=== PATIENT | female | born 1945 | race Caucasian/White ===

== ENCOUNTER 2018-02-27 10:16 | Outpatient (CLI) | payer MEDICARE ==
--- NOTE | 2018-02-27 11:08 | RAD ---
CERVICAL SPINE 3 VIEWS: Date: 02/27/18 HISTORY: 72-year-old female with history of cervical radiculopathy, with pain from base of skull into lower ba ck. Exam includes standing neutral, flexion, and extension lateral views. FINDINGS: Extensive disc osteophytosis changes are noted, particularly at C4-C5, C5-C6, and C6-C7. There is sta ble retrolisthesis of C5 on C6. There is mild anterolisthesis of C4 on C5 with approximately 0.2 cm o f anterolisthesis noted on flexion, with no significant anterolisthesis seen on extension, consistent with some mild or borderline abnormal translation. No prevertebral soft tissue swelling. IMPRESSION: Multilevel cervical spondylosis with approximately 0.2 cm anterolisthesis of C4 on C5 in flexion and no anterolisthesis demonstrated on extension. Evidence for very mild or borderline abnormal translati on. POS: [facility]
--- NOTE | 2018-02-27 11:46 | MRI ---
MRI CERVICAL SPINE PERFORMED WITHOUT CONTRAST ENHANCEMENT: Date: 02/27/18 HISTORY: Neck pain, cervical radiculopathy. FINDINGS: Vertebral bodies maintain normal height. There is disc narrowing at C4-5, C5-6, and C6-7. Cord signal change is unremarkable. C2-3: Degenerative facet changes at this level with some borderline left-sided foraminal narrowing. C3-4: Degenerative facet changes are also present at this level. There is some mild left-sided foraminal na rrowing. C4-5: Minimal anterolisthesis is present. There is posterior osteophytic bar present. There is some mild ri ght and more pronounced left-sided foraminal narrowing. C5-6: Posterior osteophytic bar associated with a mild degree of canal stenosis, and bilateral foraminal na rrowing, greater on the right, related to some asymmetric right uncovertebral changes. C6-7: Degenerative facet changes are present. There is some mild left-sided foraminal narrowing. The canal shows minimal stenosis. C7-T1: Unremarkable. IMPRESSION: Areas of foraminal and canal stenosis as discussed above. POS: [facility]
== END 2018-02-27 10:17 | disposition home or self-care (01) ==
LOC: TBSIIMAG 10:16
PROVIDERS: ATTEND Surgery
DX: M47.22 Other spondylosis with radiculopathy, cervical region (principal); M43.12 Spondylolisthesis, cervical region; M48.02 Spinal stenosis, cervical region; M99.81 Other biomechanical lesions of cervical region
CPT/HCPCS: 72040; 72141

== ENCOUNTER 2018-03-15 11:05 | Outpatient (CLI) | payer MEDICARE ==
--- NOTE | 2018-03-15 12:43 | MRI ---
MRI LUMBAR SPINE NONCONTRAST: HISTORY: Low back pain. FINDINGS: The conus medullaris has a normal appearance. Radiographs are not available for direct correlation; therefore, the lowest lumbar type vertebra will be designated as L5, with the remainder numbered acco rdingly. Vertebral body heights are maintained. Desiccation of all the intervertebral disks. Scattered heman giomas and discogenic endplate bone marrow changes. The largest hemangioma is within the L3 vertebra l body. Very mild posterior disk bulge at the T11-T12 level. T12-L1/L1-L2/L2-L3: Mild osteophytosis. Central canal and neural foramina are patent. L3-L4: Minimal disk bulge. Osteophytosis of the facets. Central canal is patent. L4-L5: Mild posterior disk bulge. Circumferential degenerative changes with moderate stenosis, cent ral canal. Prominent osteophytosis of each facet. Moderate bilateral foraminal stenoses. L5-S1: Grade 1 degenerative spondylolisthesis. Mild disk bulge. Thecal sac is patent. Prominent h ypertrophy of the facets. Severe bilateral foraminal stenoses. IMPRESSION: Prominent degenerative changes, lower lumbar spine, including severe bilateral foraminal stenoses at the lumbosacral junction. Clinical correlation regarding each L5 dermatome is required. POS: [facility]
== END 2018-03-15 11:06 | disposition home or self-care (01) ==
LOC: TBSIIMAG 11:05
PROVIDERS: ATTEND Surgery
DX: M54.5 Low back pain (principal); M47.26 Other spondylosis with radiculopathy, lumbar region; M48.061 Spinal stenosis, lumbar region without neurogenic claudication; M99.83 Other biomechanical lesions of lumbar region
CPT/HCPCS: 72148

== ENCOUNTER 2019-06-17 10:02 | Outpatient (CLI) | payer MEDICARE ==
--- NOTE | 2019-06-17 10:37 | RAD ---
FOUR VIEWS LUMBAR SPINE: HISTORY: Pain. FINDINGS: AP, lateral upright neutral, lateral upright flexion and lateral upright extension views demonstrate 5 lumbar-type vertebrae. Lumbar spine vertebral body height is maintained. No fracture. Visualized bony pelvis and sacrum are unremarkable. Spondylolisthesis: Neutral: 6.6 mm of anterolisthesis of L5 upon S1. Flexion: 8.4 mm of anterolisthesis of L5 upon S1. Extension: 7.2 mm of anterolisthesis of L5 upon S1. No associated spondylolysis. Atherosclerosis of a nonaneurysmal aorta is noted. IMPRESSION: Grade 1 anterolisthesis of L5 upon S1 with motion upon extension and flexion. Transcribed Date/Time: 06/17/2019 10:51 AM
--- NOTE | 2019-06-17 11:06 | MRI ---
MRI LUMBAR SPINE WITHOUT CONTRAST: DATE: 06/17/2019. COMPARISON: 03/15/2018. HISTORY: Back pain with right-sided radiculopathy/right hip pain. TECHNIQUE: Multiplanar multisequence MR imaging of the lumbar spine without contrast. FINDINGS: The sagittal STIR imaging demonstrates no focal area of osseous marrow edema. There is 7 mm of anterolisthesis of L5 on S1. On the basis of 5 lumbar type-vertebral bodies, the conus medullaris terminates at the T12-L1 level. T12-L1: No central canal or neural foraminal stenosis. L1-2: No central canal or neural foraminal stenosis. L2-3: Mild bilateral facet hypertrophy. No significant central canal or neural foraminal stenosis. L3-4: There is mild bilateral facet hypertrophy and hypertrophy of the ligamentum flavum. There is di sc desiccation and minimal disc bulge. No significant central canal or neural foraminal stenosis. L4-5: There is disc space narrowing with disc desiccation and mild disc bulge, slightly more prominen t than on the prior exam. There is severe bilateral facet hypertrophy with fluid within bilateral facet joints, similar when compared to the prior exam. There is a synovial cyst emanating from the me dial aspect of the right facet joint measuring 7 mm, enlarged when compared to the prior study at which time it measured 3-4 mm. There is associated moderate central canal stenosis with severe associ ated right lateral recess stenosis, progressed since the prior examination. Moderate bilateral neural foraminal stenosis. L5-S1: Prominent bilateral facet hypertrophy. There is disc space narrowing and disc desiccation with mild disc bulge. Stable moderate central canal stenosis. Stable moderate/severe bilateral neural foraminal stenosis. Benign hemangiomata are noted within the lumbar spine at multiple levels. The visualized retroperitoneal structures appear grossly unremarkable. IMPRESSION: Multilevel degenerative change within the lumbar spine as detailed above, progressed since the prior examination. This includes an enlarging medially projecting synovial cyst on the right at L4-5 with worsening central canal stenosis/right lateral recess stenosis. Transcribed Date/Time: 06/17/2019 11:20 AM
== END 2019-06-17 10:03 | disposition home or self-care (01) ==
LOC: TBSIIMAG 10:02
PROVIDERS: ATTEND Physician Assistant Surgical
DX: M48.062 Spinal stenosis, lumbar region with neurogenic claudication (principal); M47.26 Other spondylosis with radiculopathy, lumbar region; M43.16 Spondylolisthesis, lumbar region; M54.5 Low back pain; M25.551 Pain in right hip; M43.17 Spondylolisthesis, lumbosacral region; M71.38 Other bursal cyst, other site
CPT/HCPCS: 72120; 72148

== ENCOUNTER 2019-07-23 12:32 | Outpatient (CLI) | payer MEDICARE ==
--- NOTE | 2019-07-23 13:24 | CT ---
CT Lumbar Spine WO Con History: Pain. Cyst aspiration. Comparison: MRI lumbar spine June 2019 Findings: The kidneys are unremarkable. No hydronephrosis. Mild atherosclerotic plaque of the aorta. Paraspinal musculature is symmetric. Grade 1 L4 over L5 anterolisthesis is similar. No acute fracture or malalignment. Small amount of subcutaneous emphysema along the right L4/L5 facet joint from prior cyst aspiration i s an expected finding. There is some gas along the exiting nerve root and no definite intradural gas is appreciated. Level by level evaluation was recently done by MRI which has greater sensitivity for disc herniations and nerve root abutment. Impression: Expected recent postprocedural findings without complication. Gas within the recently asp irated synovial cyst.
== END 2019-07-23 12:33 | disposition home or self-care (01) ==
LOC: CT 12:32
PROVIDERS: ATTEND Surgery
DX: M54.5 Low back pain (principal); M43.16 Spondylolisthesis, lumbar region; M48.062 Spinal stenosis, lumbar region with neurogenic claudication; M54.30 Sciatica, unspecified side; M71.30 Other bursal cyst, unspecified site; Z98.890 Other specified postprocedural states
CPT/HCPCS: 72131

== ENCOUNTER 2020-10-08 12:14 | Outpatient (CLI) | payer MEDICARE | END 2020-10-08 12:15 | disposition home or self-care (01) | LOC: TBSIIMAG 12:14 | PROVIDERS: ATTEND Anesthesiology Pain Medicine | DX: M54.16 Radiculopathy, lumbar region (principal); M71.38 Other bursal cyst, other site; M47.816 Spondylosis without myelopathy or radiculopathy, lumbar region; M47.817 Spondylosis without myelopathy or radiculopathy, lumbosacral region; M48.061 Spinal stenosis, lumbar region without neurogenic claudication; M48.07 Spinal stenosis, lumbosacral region; M25.48 Effusion, other site | CPT/HCPCS: 72148 ==